=== PATIENT | female | born 1980 | race Caucasian/White ===

== ENCOUNTER 2017-08-03 15:56 | Emergency (ER) | payer MEDICAID ==
[~2017-08-03] VITALS: Ht 170.2 cm; Wt 74.0 kg
[~2017-08-03 15:56] MED LIST: METR-1 PO
[2017-08-03 16:01] VITALS: BP 134/73; PULSE 79; RESP 20; TEMP 97.6; O2SAT 100
[2017-08-03] MEDS ORDERED: PREN29TA PO (18:04)
--- NOTE | 2017-08-03 18:54 | PD ---
HPI Chief Complaint: Related Problem Time Seen by Provider: 18:02 Travel History International Travel<30 days: No Contact w/Intl Traveler<30days: No Traveled to known affect area: No History of Present Illness HPI 36-year-old female, proximally 6 weeks , presents to the emergency department with complaint of brown vaginal spotting that started last night. Last menstrual period June 22. This is her second with one live . She is also complaining of some lower abdominal discomfort, but no cramping or pain. Denies abnormal vaginal discharge, abnormal vaginal odor. Denies fever, vomiting. Denies dysuria. Reports diarrhea that is normal for her. Is not concerned of STD or STI exposure. Has not taken any medications or trying treatments to alleviate her symptoms. No known aggravating or relieving factors. Symptoms are mild to moderate in severity. [employer] is Angel Nowak in [place]. Primary care provider is Dr. Silva. Allergies to penicillins. Denies significant past medical history. Has no other medical complaints. No other modifying factors or associated signs and symptoms. PFSH Past Medical History Anxiety: Yes Depression: Yes Cancer: No Cardiovascular Problems: No Diminished Hearing: No Endocrine: No Gastrointestinal Disorders: Yes (ESOPHAGITIS, GASTRITIS, GASTROPARESIS) Genitourinary: No Immune Disorder: No Implanted Vascular Access Dvce: No Kidney Stones: Yes Musculoskeletal: No Neurologic: No Psychiatric: No Reproductive: Yes (ENDOMETRIOSIS) Respiratory: No Immunizations Current: Yes Pancreatitis: Yes PNEUMOCCOCAL Vaccine (Year): 2010 ?: LMP: 06/22/17 : 1 Para: 0 Miscarriage: 0 : 0 Ovarian Cysts: Yes Past Surgical History Abdominal Surgery: Yes (laparoscopy -FOR ENDOMETRIOSIS) Gynecologic Surgery: Yes (hx of endometriosis) Oral Surgery: Yes Social History Alcohol Use: No Tobacco Use: No Substance Use: No Allergies-Medications (Allergen,Severity, Reaction): Coded Allergies: fanny (Unverified Allergy, Severe, Swelling, 10/17/16) FANNY BERRIES FACIAL SWELLING amoxicillin (Unverified Allergy, Severe, VOMITING, 10/17/16) ipratropium (Unverified Allergy, Severe, Anaphylaxis, 10/17/16) penicillin G (Unverified Allergy, Severe, VOMITING, 10/17/16) Reported Meds & Prescriptions Reported Meds & Active Scripts Active Reported Plus Iron 29-1 mg ( Vit-Iron Carbonyl) 29 Mg Iron-1 Mg Tab 1 Tab PO DAILY Review of Systems Except as stated in HPI: all other systems reviewed are Neg Physical Exam Narrative GENERAL: Well-nourished, well-developed female patient, in no acute distress; afebrile, nontoxic-appearing SKIN: Warm and dry. HEAD: Atraumatic. Normocephalic. EYES: Pupils equal and round. No scleral icterus. No injection or drainage. ENT: Mucous membranes pink and moist. NECK: Trachea midline. No lymphadenopathy. CARDIOVASCULAR: Regular rate RESPIRATORY: No accessory muscle use. GASTROINTESTINAL: Abdomen soft, non-tender, nondistended. Bilateral pelvic region nontender to palpation. Hepatic and splenic margins not palpable. No guarding, rigidity, rebound tenderness. PELVIC: Exam done in the presence of a nurse. Speculum exam reveals edematous and erythematous cervix with dark brown discharge. Bimanual exam reveals no palpable masses or adnexa tenderness, no uterine tenderness. No cervical motion tenderness. BACK: No CVA tenderness. MUSCULOSKELETAL: No obvious deformities. No clubbing. No cyanosis. No edema. NEUROLOGICAL: Awake and alert. No obvious cranial nerve deficits. Motor grossly within normal limits. Normal speech. PSYCHIATRIC: Appropriate mood and affect; insight and judgment normal. Data Data Last Documented VS Vital Signs Date Time Temp Pulse Resp B/P (MAP) Pulse Ox O2 Delivery O2 Flow Rate FiO2 08/03/17 16:01 97.6 79 20 134/73 (93) 100 Orders Orders Beta Hcg (Quant/Titer) (08/03/17 18:08) Complete Blood Count With Diff (08/03/17 18:08) Comprehensive Metabolic Panel (08/03/17 18:08) Us Pelvis (Ques Preg/Ectopic) (08/03/17 ) Urinalysis - C+S If Indicated (08/03/17 18:08) Gc And Chlamydia Pcr (08/03/17 18:08) Wet Prep Profile (08/03/17 18:08) Ed Urine Pregnancytest Poc (08/03/17 18:08) Type And Screen (08/03/17 18:54) Labs Laboratory Tests Test 08/03/17 18:42 08/03/17 18:47 MDM Medical Decision Making Medical Screen Exam Complete: Yes Emergency Medical Condition: Yes Medical Record Reviewed: Yes Differential Diagnosis Threatened miscarriage, vaginal bleeding during , cervicitis Narrative Course 36-year-old female, approximately 6 weeks , with dark brown spotting that started last night and lower abdominal discomfort. UPT positive. CBC, BMP , beta-hCG, type and screen, urinalysis, wet prep, chlamydia, gonorrhea, pelvic ultrasound ordered. 1900: Report given to Dr. Mackay at change of shift. See her note for final patient disposition. Elicia Dewey Aug 03, 2017 18:54
[2017-08-03 18:57] LABS: AUTOMATED NEUTROPHIL # 2.3 TH/MM3 (1.8-7.7); BASOPHIL % 0.5 % (0.0-2.0); EOSINOPHIL # 0.1 TH/MM3 (0-0.4); EOSINOPHIL % 2.7 % (0.0-4.0); HEMATOCRIT 38.3 % (35.0-46.0); HEMOGLOBIN 13.1 GM/DL (11.6-15.3); LYMPH % 35.9 % (9.0-44.0); LYMPHOCYTE # 1.7 TH/MM3 (1.0-4.8); MEAN CELL VOLUME 92.3 FL (80.0-100.0); MEAN CORPUSCULAR HEMOGLOBIN 31.6 PG (27.0-34.0); MEAN CORPUSCULAR HGB CONC 34.2 % (32.0-36.0); MEAN PLATELET VOLUME 7.9 FL (7.0-11.0); MONOCYTE # 0.6 TH/MM3 (0-0.9); NEUT % 47.9 % (16.0-70.0); PLATELET COUNT 247 TH/MM3 (150-450); RED BLOOD COUNT 4.15 MIL/MM3 (4.00-5.30); RED CELL DISTRIBUTION WIDTH 13.4 % (11.6-17.2); WHITE BLOOD COUNT 4.8 TH/MM3 (4.0-11.0)
[2017-08-03 18:59] LABS: BACTERIA, URINE RARE /hpf; BILIRUBIN, URINE NEG (NEG); BLOOD, URINE TRACE (NEG); GLUCOSE,URINE NEG (NEG); KETONE, URINE NEG (NEG); MUCUS URINE FEW /lpf (OCC); NITRITE,URINE NEG (NEG); SQUAMOUS EPITHELIAL CELL URINE 1 /hpf (0-5); URINE COLOR YELLOW (YELLW/STRAW); URINE LEUKOCYTE ESTERASE NEG (NEG)
[2017-08-03 19:00] VITALS: BP 130/64; PULSE 70; RESP 14; O2SAT 97
[2017-08-03 19:08] LABS: ALBUMIN 3.8 GM/DL (3.4-5.0); AST (GOT) 19 U/L (15-37); BICARBONATE 26.6 MEQ/L (21.0-32.0); BLOOD UREA NITROGEN 11 MG/DL (7-18); CHLORIDE 106 MEQ/L (98-107); CREATININE 0.69 MG/DL (0.50-1.00); GLOMERULAR FILTRATION RATE 97 ML/MIN (>89); GLUCOSE,RANDOM 87 MG/DL (74-106); SODIUM (NA) 141 MEQ/L (136-145)
[2017-08-03 19:09] LABS: ALT (GPT) 21 U/L (10-53)
[2017-08-03 19:13] LABS: ALKALINE PHOSPHATASE 51 U/L (45-117); TOTAL BILIRUBIN ADULT 0.4 MG/DL (0.2-1.0)
--- NOTE | 2017-08-03 20:19 | RADRPT ---
EXAM DATE: 08/03/2017 8:13 PM EDT AGE/SEX: 36 years / Female INDICATIONS: Cramping and bleeding x 1 day. CLINICAL DATA: This is the patient's initial encounter. Patient reports that signs and symptoms have been present for 1 day and indicates a pain score of 1/10. MEDICAL/SURGICAL HISTORY: Gastroparesis. Endometriosis. . Laparoscopic procedure for endometri osis. COMPAR[place] [facility] [place] PREG/ECTOPIC[place] 05/24/2015. . No external comparison. MEASUREMENTS: Uterus:__9.9 x 7.5 x 5.0 cm Endometrial Stripe:__14 mm Right Ovary:__ 3.4 x 2.8 x 1.9 cm Left Ovary:__ 2.8 x 2.0 x 1.6 cm FINDINGS: Uterus: The myometrium has homogeneous echotexture without mass. There is an eccentrically located cystic fluid area within the endometrium measuring 6 x 5 x 4 mm consistent with a gestational age of 5 weeks and 0 days. No yolk sac or embryo is visualized. Right Ovary: No concerning abnormality is identified. No concerning cystic or solid mass is seen. Left Ovary: No concerning abnormality is identified. No concerning cystic lesion or solid mass is id entified. Other: No free fluid. CONCLUSION: 1. Findings consistent with early intrauterine with gestational sac consistent with 5 week and 0 day . 2. No other abnormality is identified. Electronically signed by: Matthew Conklin MD 08/03/2017 8:18 PM EDT
--- NOTE | 2017-08-03 20:31 | PD ---
Physical Exam Narrative I, Dr. Mackay, have reviewed the advance practice practitioner's documentation and am in agreement, met with the patient face to face, made the diagnosis, and the medical decision making was done by me. *My assessment and Findings: Patient is a 36 year old female, approximately 6 weeks , who comes in complaining of spotting that started last night. Exam shows abdomen is soft and nontender. Data Data Last Documented VS Vital Signs Date Time Temp Pulse Resp B/P (MAP) Pulse Ox O2 Delivery O2 Flow Rate FiO2 08/03/17 19:00 70 14 130/64 (86) 97 Aerosol Mask 08/03/17 16:01 97.6 Orders Orders Beta Hcg (Quant/Titer) (08/03/17 18:08) Complete Blood Count With Diff (08/03/17 18:08) Comprehensive Metabolic Panel (08/03/17 18:08) Urinalysis - C+S If Indicated (08/03/17 18:08) Gc And Chlamydia Pcr (08/03/17 18:08) Wet Prep Profile (08/03/17 18:08) Ed Urine Pregnancytest Poc (08/03/17 18:08) Type And Screen (08/03/17 18:54) Us Pelvis (Ques Pr/Ect)W Trans (08/03/17 ) Ed Discharge Order (08/03/17 20:31) Labs Laboratory Tests Test 08/03/17 18:08 08/03/17 18:42 08/03/17 18:47 Urine Color YELLOW Urine Turbidity CLEAR Urine pH 6.0 Urine Specific [place] 1.018 Urine Protein NEG mg/dL Urine Glucose (UA) NEG mg/dL Urine Ketones NEG mg/dL Urine Occult Blood TRACE Urine Nitrite NEG Urine Bilirubin NEG Urine Urobilinogen LESS THAN 2.0 MG/DL Urine Leukocyte Esterase NEG Urine WBC 1 /hpf Urine Squamous Epithelial Cells 1 /hpf Urine Bacteria RARE /hpf Urine Mucus FEW /lpf Microscopic Urinalysis Comment CULT NOT INDICATED White Blood Count 4.8 TH/MM3 Red Blood Count 4.15 MIL/MM3 Hemoglobin 13.1 GM/DL Hematocrit 38.3 % Mean Corpuscular Volume 92.3 FL Mean Corpuscular Hemoglobin 31.6 PG Mean Corpuscular Hemoglobin Concent 34.2 % Red Cell Distribution Width 13.4 % Platelet Count 247 TH/MM3 Mean Platelet Volume 7.9 FL Neutrophils (%) (Auto) 47.9 % Lymphocytes (%) (Auto) 35.9 % Monocytes (%) (Auto) 13.0 % Eosinophils (%) (Auto) 2.7 % Basophils (%) (Auto) 0.5 % Neutrophils # (Auto) 2.3 TH/MM3 Lymphocytes # (Auto) 1.7 TH/MM3 Monocytes # (Auto) 0.6 TH/MM3 Eosinophils # (Auto) 0.1 TH/MM3 Basophils # (Auto) 0.0 TH/MM3 CBC Comment DIFF FINAL Differential Comment Blood Urea Nitrogen 11 MG/DL Creatinine 0.69 MG/DL Random Glucose 87 MG/DL Total Protein 7.0 GM/DL Albumin 3.8 GM/DL Calcium Level 9.0 MG/DL Alkaline Phosphatase 51 U/L Aspartate Amino Transf (AST/SGOT) 19 U/L Alanine Aminotransferase (ALT/SGPT) 21 U/L Total Bilirubin 0.4 MG/DL Sodium Level 141 MEQ/L Potassium Level 3.9 MEQ/L Chloride Level 106 MEQ/L Carbon Dioxide Level 26.6 MEQ/L Anion Gap 8 MEQ/L Estimat Glomerular Filtration Rate 97 ML/MIN Human Chorionic Gonadotropin, Quant 941 MIU/ML Clue Cells (Wet Prep) PRESENT Vaginal Trichomonas (Wet Prep) NONE SEEN Vaginal Yeast (Wet Prep) NONE SEEN MDM Supervised Visit with JARAD: Yes Narrative Course Labs show a Beta Hcg of 941. US shows a gestational sac, of 5 weeks. Last 24 hours Impressions Pelvis Ultrasound 08/03/17 0000 Signed Impressions: CONCLUSION: 1. Findings consistent with early intrauterine with gestational sac consistent with 5 week and 0 day . 2. No other abnormality is identified. She is Rh +. Advised to practice pelvic rest. Advised to return to the ED as needed for any worsening symptoms, including any worsening bleeding or pain. Advised to follow up with obstetrics and gynecology professor. Patient's wet prep positive for clue cells. Given Flagyl, per UptoDate: . The dose of oral metronidazole for the treatment of bacterial vaginosis during is the same as the CDC recommended twice daily dose in non female. Patient is concerned about risk to the fetus. I explained it is the recommended treatment and the risk to the fetus is low. However, she would like to have an alternative to try. Given both prescriptions to consider. Diagnosis Primary Impression: Threatened Additional Impression: Bacterial vaginosis Patient Instructions: Bacterial Vaginosis (ED), General Instructions, Threatened Miscarriage (ED) Additional Instruction: Follow up with your OB/legislative correspondent. Avoid intercourse for the next 1-2 weeks. Return to the ED as needed for any worsening symptoms. Scripts Clindamycin (Clindamycin) 300 Mg Cap 300 MG PO BID for Infection for 7 Days, #14 CAP 0 Refills Prov: Lacey Mackay MD 08/03/17 Metronidazole (Flagyl) 500 Mg Tab 500 MG PO BID for Infection for 7 Days, #14 TAB 0 Refills Prov: Lacey Mackay MD 08/03/17 Disposition: 01 DISCHARGE HOME Condition: Stable Lacey Mackay MD Aug 03, 2017 20:31
[2017-08-03] MEDS ORDERED: METR-1 PO (20:36)
[2017-08-03] MEDS ORDERED: CLIN300C5 PO (20:42)
== END 2017-08-03 20:50 | disposition home or self-care (01) ==
LOC: NEPD 15:56
DX: O20.0 Threatened abortion (principal); O23.591 Infection of other part of genital tract in pregnancy, first trimester; N76.0 Acute vaginitis; B96.89 Other specified bacterial agents as the cause of diseases classified elsewhere; F41.9 Anxiety disorder, unspecified; F32.9 Major depressive disorder, single episode, unspecified; Z87.19 Personal history of other diseases of the digestive system; Z87.442 Personal history of urinary calculi; Z3A.01 Less than 8 weeks gestation of pregnancy
CPT/HCPCS: 76700; 76817; 80053; 81001; 84702; 84703; 85025; 86850; 86900; 86901; 87210; 87491; 87591; 99284

== ENCOUNTER 2017-08-06 19:10 | Emergency (ER) | payer MEDICAID ==
[~2017-08-06 19:10] MED LIST changes: +CLIN300C5 PO; +PREN29TA PO
[2017-08-06 20:08] VITALS: BP 135/71; PULSE 81; RESP 18; TEMP 98.5; O2SAT 100
--- NOTE | 2017-08-06 22:40 | PD ---
HPI Chief Complaint: Related Problem Time Seen by Provider: 22:27 Travel History International Travel<30 days: No Contact w/Intl Traveler<30days: No Traveled to known affect area: No History of Present Illness HPI The patient is a whose last menstrual cycle was June 28, 2017 and she is currently 5+ weeks . The patient was seen on August 03, 2017 where she had a beta hCG of 941 an ultrasound which revealed a 5 week but no visible yolk sac. The patient states she is having increasing symptoms including abdominal cramping in the lower abdomen and vaginal bleeding which consist of "grapelike jelly "blood clots. The patient's first vaginal delivery was full-term. Symptoms are moderate. PFSH Past Medical History Anxiety: Yes Depression: Yes Cancer: No Cardiovascular Problems: No Diminished Hearing: No Endocrine: No Gastrointestinal Disorders: Yes (ESOPHAGITIS, GASTRITIS, GASTROPARESIS) Genitourinary: No Immune Disorder: No Implanted Vascular Access Dvce: No Kidney Stones: Yes Musculoskeletal: No Neurologic: No Psychiatric: No Reproductive: Yes (ENDOMETRIOSIS) Respiratory: No Immunizations Current: Yes Pancreatitis: Yes Tetanus Vaccination: < 5 Years Influenza Vaccination: Yes PNEUMOCCOCAL Vaccine (Year): 2010 ?: LMP: 06/22/17 : 1 Para: 0 Miscarriage: 0 : 0 Ovarian Cysts: Yes Past Surgical History Abdominal Surgery: Yes (laparoscopy -FOR ENDOMETRIOSIS) Gynecologic Surgery: Yes (hx of endometriosis) Oral Surgery: Yes Social History Alcohol Use: No Tobacco Use: No Substance Use: No Allergies-Medications (Allergen,Severity, Reaction): Coded Allergies: fanny (Unverified Allergy, Severe, Swelling, 08/06/17) FANNY BERRIES FACIAL SWELLING amoxicillin (Unverified Allergy, Severe, VOMITING, 08/06/17) ipratropium (Unverified Allergy, Severe, Anaphylaxis, 08/06/17) penicillin G (Unverified Allergy, Severe, VOMITING, 08/06/17) Reported Meds & Prescriptions Reported Meds & Active Scripts Active Ibuprofen 600 Mg Tab 600 Mg PO Q6H PRN Shirley (Hydrocodone-Acetaminophen) 5 Mg-325 Mg Tab 1 Tab PO Q6H PRN Reported Plus Iron 29-1 mg ( Vit-Iron Carbonyl) 29 Mg Iron-1 Mg Tab 1 Tab PO DAILY Review of Systems Except as stated in HPI: all other systems reviewed are Neg General / Constitutional: No: Fever Cardiovascular: No: Chest Pain or Discomfort Respiratory: No: Shortness of Breath Gastrointestinal: Positive: Nausea, Abdominal Pain, No: Vomiting Genitourinary: Positive: Pelvic Pain, Vaginal Bleeding Physical Exam Narrative GENERAL: Awake, alert, nontoxic-appearing 36-year-old female who appears her stated age and is in no acute respiratory distress. SKIN: Focused skin assessment warm/dry. HEAD: Atraumatic. Normocephalic. EYES: No injection or drainage. NECK: Trachea midline. No JVD. CARDIOVASCULAR: Regular rate and rhythm. No murmur appreciated. RESPIRATORY: No accessory muscle use. Clear to auscultation. Breath sounds equal bilaterally. GASTROINTESTINAL: Abdomen soft, non-tender, nondistended. No guarding or rigidity. Back: No CVA tenderness. Genitourinary: Small amount of blood at the introitus. Vaginal exam does reveal dark-colored blood in the vaginal vault. Cervix is approximately 1 cm in width and 0.5 cm in height. There is blood at the cervical loss. MUSCULOSKELETAL: No obvious deformities. No clubbing. No cyanosis. No edema. NEUROLOGICAL: Awake and alert. No obvious cranial nerve deficits. Motor grossly within normal limits. Normal speech. PSYCHIATRIC: Appropriate mood and affect; insight and judgment normal. Data Data Last Documented VS Vital Signs Date Time Temp Pulse Resp B/P (MAP) Pulse Ox O2 Delivery O2 Flow Rate FiO2 08/07/17 02:11 20 08/06/17 20:08 98.5 81 135/71 (92) 100 Orders Orders Beta Hcg (Quant/Titer) (08/06/17 22:32) Sodium Chlor 0.9% 1000 Ml Inj (Ns 1000 M (08/06/17 22:45) Ed Urine Pregnancytest Poc (08/06/17 22:33) Morphine Inj (Morphine Inj) (08/06/17 22:45) Ondansetron Odt (Zofran Odt) (08/06/17 22:45) Us Pelvis (Ques Preg/Ectopic) (08/07/17 ) Morphine Inj (Morphine Inj) (08/07/17 01:15) Ed Discharge Order (08/07/17 02:32) Labs Laboratory Tests Test 08/06/17 22:53 Human Chorionic Gonadotropin, Quant 783 MIU/ML [facility] Medical Decision Making Medical Screen Exam Complete: Yes Emergency Medical Condition: Yes Medical Record Reviewed: Yes Interpretation(s) Last Impressions Pelvis Ultrasound 08/07/17 0000 Signed Impressions: CONCLUSION: 1. Irregular small gestational sac in the endometrial cavity to small for date s. 2. Recommend serial beta hCGs and follow-up ultrasound if indicated. Laboratory Tests Test 08/06/17 22:53 Human Chorionic Gonadotropin, Quant 783 MIU/ML Differential Diagnosis Differential diagnosis includes threatened AB, incomplete AB, complete AB, ectopic , normal , UTI. Narrative Course I reviewed the patient's EMR, she had a beta hCG on August 03 at 941 and an ultrasound which revealed a 5 week , no heart tones were noted on the ultrasound. The patient is having increasing abdominal cramping and bleeding, may be threatened AB versus complete AB. I had a discussion with the patient regarding category C morphine, she is agreeable. Therefore, the patient had an IV established, beta-hCG was sent to lab, and the patient was administered morphine 4 mg intravenously and Zofran 4 mg ODT. The patient was also administered 1 L of IV fluids. EMR does reveal the patient's blood type is a positive, therefore, no indication for RhoGam. Ultrasound was ordered to evaluate for possible complete AB. Ultrasound reveals a gestational sac, irregular, too small for dates within the endometrial cavity. Most likely this represents an incomplete AB. The patient will be discharged home on pain medications and is advised to follow-up with an nurse orthopedic. Diagnosis Primary Impression: Spontaneous Patient Instructions: General Instructions Additional Instructions: Medications as directed. Please provide the patient a copy of her labs and ultrasound results at discharge. Follow-up with her nurse orthopedic. Med/Other Pt SpecificInfo: Prescription(s) given Scripts Ibuprofen (Ibuprofen) 600 Mg Tab 600 MG PO Q6H Y for Pain/Inflammation, #20 TAB 0 Refills Prov: Anders Schuler MD 08/07/17 Hydrocodone-Acetaminophen (Shirley) 5 Mg-325 Mg Tab 1 TAB PO Q6H Y for PAIN, #12 TAB 0 Refills Prov: Anders Schuler MD 08/07/17 Disposition: 01 DISCHARGE HOME Condition: Stable Anders Schuler MD Aug 06, 2017 22:40
[2017-08-06] MEDS ORDERED: ONDANSETRON ODT 4 MG TAB PO ONE (22:45)
[2017-08-06] MEDS ORDERED: SODIUM CHLOR 0.9% 1000 ML INJ 1,000 ML IV ONE (22:45)
[2017-08-06] MEDS ORDERED: MORPHINE SULFATE 4 MG/ML INJ IV PUSH ONE (22:45)
[2017-08-07] MEDS ORDERED: MORPHINE SULFATE 4 MG/ML INJ IV PUSH ONE (01:15)
--- NOTE | 2017-08-07 01:19 | RADRPT ---
EXAM DATE: 08/07/2017 1:07 AM EDT AGE/SEX: 36 years / Female INDICATIONS: Increased vaginal bleeding x 3 days. CLINICAL DATA: This is the patient's subsequent encounter. Patient reports that signs and symptoms h ave been present for 3 days and indicates a pain score of 4/10. MEDICAL/SURGICAL HISTORY: Gastroparesis. Renal calculi. Pancreatitis. Endometriosis. . Oral surgery. Laparoscopic surgery for endometriosis. COMPARISON: [facility], US PELVIS ([facility] P[facility]/ECTOPIC), 05/24/2015. . MEASUREMENTS: Uterus:__8.8 x 6.4 x 4.8 cm Endometrial Stripe:__10 mm Right Ovary:__ 4.1 x 2.9 x 1.9 cm Left Ovary:__ 4.1 x 2.2 x 1.6 cm FINDINGS: Uterus: The uterus appears to be retroverted in position. Small irregular gestational sac in the end ometrial cavity, too small for dates. Right Ovary: The right ovary is unremarkable. Left Ovary: The left ovary is unremarkable. Other: No free fluid. CONCLUSION: 1. Irregular small gestational sac in the endometrial cavity to small for dates. 2. Recommend serial beta hCGs and follow-up ultrasound if indicated. Electronically signed by: Jose Angel Valentin MD 08/07/2017 1:18 AM EDT
[2017-08-07 02:11] VITALS: RESP 20
[2017-08-07] MEDS ORDERED: NORC5TAB PO (02:28)
[2017-08-07] MEDS ORDERED: IBUP-232 PO (02:28)
== END 2017-08-07 03:05 | disposition home or self-care (01) ==
LOC: NEPE 19:10
DX: O03.9 Complete or unspecified spontaneous abortion without complication (principal)
CPT/HCPCS: 76700; 84702; 84703; 96374; 96376; 99284; J2270; J7030